=== PATIENT | female | born 1995 | race Caucasian/White ===

== ENCOUNTER 2021-10-08 17:54 | Emergency (ER) | payer SELFPAY ==
[2021-10-08 18:30] VITALS: BP 130/86; PULSE 72; RESP 18; TEMP 36.3; O2SAT 100
--- NOTE | 2021-10-08 18:38 | ED.ALLEREA ---
HPI - Allergic Reaction General Chief complaint: Allergic Reaction Stated complaint: hives Time Seen by Provider: 10/08/21 18:38 Source: patient Mode of arrival: ambulatory Limitations: no limitations History of Present Illness HPI narrative: 26-year-old migraine presents 1-2 cm circular erythematous wheals with skin excoriation intense pruritus. No new medications. No new foods consumed recently. No hoarseness, shortness of breath, tongue swelling, abdominal pain or lightheadedness MD complaint: allergic reaction Onset (ago): day(s) ( 1 day) Exposure: unknown Symptoms: rash and itching Severity: moderate Treatment prior to arrival: none Previous Allergic Reaction History: none Related Data Home Medications Medication Instructions Recorded Confirmed ibuprofen 800 mg PO Q6H PRN 10/08/21 10/08/21 Allergies Allergy/AdvReac Type Severity Reaction Status Date / Time No Known Allergies Allergy Verified 10/08/21 18:32 Review of Systems Review of Systems: All systems reviewed & are unremarkable except as noted in HPI and below Constitutional: Constitutional: Reports as per HPI and Reports no additional constitutional complaints Eyes: Eyes: Reports as per HPI and Reports no additional eye complaints ENT: Reports system reviewed and no additional complaints, except as documented Cardiovascular: Cardiovascular: Reports as per HPI and Reports no additional cardiovascular complaints Respiratory: Respiratory: Reports as per HPI and Reports no additional respiratory complaints Gastrointestinal: Gastrointestinal: Reports as per HPI and Reports no additional gastrointestinal complaints Genitourinary: Genitourinary: Reports no additional female genitourinary complaints Musculoskeletal: Musculoskeletal: Reports no additional musculoskeletal complaints Integumentary/Breasts: Skin/Breast: Reports system reviewed and no additional complaints, except as docu and Reports as per HPI Neurologic: Reports system reviewed and no additional complaints, except as documented Psychiatric: Psychiatric: Reports no additional psychiatric complaints Endocrine: Endocrine: Reports no additional endocrine complaints Hematologic/Lymphatic: Hematologic/Lymphatic: Reports no additional hematologic/lymphatic complaints Allergic/Immunologic: Allergic/Immunologic: Reports no additional allergic/immunologic complaints Exam Narrative: multiple 1-2 cm raised erythematous wheals with intense itching and skin excoriation Const: General: cooperative, healthy appearing and comfortable HENMT: Head: normal to inspection Ears: hearing grossly normal bilaterally General nose exam: Normal external nose present Face and sinus: normal facial exam Mouth: Yes Normal oral and palatal mucosa present Teeth and gingiva: dentition normal Throat: posterior oropharynx normal Eyes: General: appearance normal, both eyes and all related structures Eyelids: eyelids normal Conjunctivae: conjunctivae normal Sclera: sclerae normal Cornea: corneas normal Pupils: Equal, round and reactive pupils present Neck: Neck: normal visual inspection Thyroid: thyroid normal Chest: Chest palpation & inspection: normal inspection of the chest Resp: Effort & Inspection: normal respiratory effort Auscultation: clear to auscultation bilaterally Cardio: Jugular venous distension: no JVD Rate: regular rate Rhythm: regular rhythm Heart sounds: S1 normal heart sound present and S2 normal heart sound present GI: Inspection: normal to inspection ( no Abdominal tenderness/rigidity/rebound.) : General: Yes no CVA tenderness Back/Spine/Pelvis: Back: no CVA tenderness Skin: General skin exam: normal color ( lesions are present in arms and forearms and none elsewhere) and other ( 1-2 cm erythematous wheals with excoriation. pruritus) Neuro: General: oriented to person, oriented to place and oriented to time Cranial nerves: Yes CN's II-XII intact bilaterally Cognitio
[2021-10-08] MEDS: methylPREDNISolone SOD SUCC 125 MG VIAL IM (19:09)
[2021-10-08] MEDS: diphenhydrAMINE HCl CAP 25 MG CAPSULE PO (19:09)
== END 2021-10-08 19:18 | disposition home or self-care (01) ==
PROVIDERS: Emergency Provider Internal Medicine Critical Care Medicine
DX: L50.9 Urticaria, unspecified (principal); L28.0 Lichen simplex chronicus
CPT/HCPCS: 96372; 99283; A9270; J2930

== ENCOUNTER 2023-03-21 22:41 | Emergency (ER) | payer SELFPAY ==
--- NOTE | ~2023-03-21 | XR_ITS ---
EXAMINATION: XR chest 1V portable INDICATION: Cough TECHNIQUE: Portable AP chest at 2320 hours COMPARISON: 10/10/2018 FINDINGS: There are patchy opacities throughout all lung zones. No pleural effusion or pneumothorax. The the cardiomediastinal silhouette is normal. IMPRESSION: 1. Diffuse lung disease, likely pneumonia. Reviewed, dictated and finalized at location A.
[2023-03-21 22:45] VITALS: BP 126/80; PULSE 112; RESP 20; TEMP 36.8; O2SAT 98
--- NOTE | 2023-03-21 22:50 | PC.NURSE ---
report to pedro martin. all questions answered.
--- NOTE | 2023-03-21 22:54 | ED.URI ---
HPI - URI/Sore Throat General Chief Complaint: Upper Respiratory Infection Stated Complaint: Cough Source: patient Mode of arrival: ambulatory Limitations: no limitations History of Present Illness HPI Narrative: 27-year-old with a history Seasonal asthma,COVID March 13 presents to the ER with a 5 day history of -- cough productive of green sputum -- no chest pain. No shortness of breath. no fever MD elicited complaint: cough Onset (ago): day(s) ( symptoms started after patient had COVID but has been severe for the past 5 days) Consistency: constant Severity: moderate Description of mucous: green Able to tolerate fluids by mouth: Yes Exacerbating factors: nothing Relieving factors: nothing Associated symptoms: denies other symptoms and cough Treatments prior to arrival: none Related Data Allergies Allergy/AdvReac Type Severity Reaction Status Date / Time docosanol [From Abreva] AdvReac Unknown lip Verified 02/09/23 13:30 swelling Review of Systems Review of Systems: All systems reviewed & are unremarkable except as noted in HPI and below Constitutional: Constitutional: Reports as per HPI and Reports no additional constitutional complaints Eyes: Eyes: Reports as per HPI ENT: Reports system reviewed and no additional complaints, except as documented and Reports as per HPI Cardiovascular: Cardiovascular: Reports as per HPI and Reports no additional cardiovascular complaints Respiratory: Respiratory: Reports as per HPI, Reports no additional respiratory complaints and Reports cough Gastrointestinal: Gastrointestinal: Reports as per HPI and Reports no additional gastrointestinal complaints Musculoskeletal: Musculoskeletal: Reports no additional musculoskeletal complaints Integumentary/Breasts: Skin/Breast: Reports system reviewed and no additional complaints, except as docu and Reports as per HPI Neurologic: Reports system reviewed and no additional complaints, except as documented and Reports as per HPI Psychiatric: Psychiatric: Reports no additional psychiatric complaints and Reports as per HPI Endocrine: Endocrine: Reports no additional endocrine complaints and Reports as per HPI Hematologic/Lymphatic: Hematologic/Lymphatic: Reports no additional hematologic/lymphatic complaints and Reports as per HPI Allergic/Immunologic: Allergic/Immunologic: Reports no additional allergic/immunologic complaints and Reports as per HPI PMF Past Medical History Medical History (Updated 03/22/23 @ 00:27 by Jason Perera MD) COVID Social History Social History (Updated 02/09/23 @ 13:30 by Esther Agudelo) Smoking status: Never smoker Exam Const: General: cooperative, healthy appearing and comfortable HENMT: Head: normal to inspection, No palpable skull fracture present and normocephalic Ears: hearing grossly normal bilaterally, external ears normal and TM's normal bilaterally Face/Nose/Sinus: Normal external nose present and Normal nares present Face and sinus: normal facial exam and sinuses nontender Mouth: Yes Normal oral and palatal mucosa present, Yes lip normal and Yes tongue normal Throat: posterior oropharynx normal Eyes: General: appearance normal, both eyes and all related structures Neck: Neck: normal visual inspection, full ROM and no lymphadenopathy Lymphatic: no lymphadenopathy noted Chest: Chest palpation & inspection: normal inspection of the chest Resp: Effort & Inspection: normal respiratory effort and prolonged expiratory phase Other: Occasional rales. Cardio: Palpation: normal PMI Rate: regular rate Rhythm: regular rhythm Heart sounds: S1 normal heart sound present and S2 normal heart sound present GI: Inspection: normal to inspection GI Palp: Yes Other GI palpation findings present ( no tenderness/rigidity / rebound.) Auscultation: normal bowel sounds : General: Yes no CVA tenderness Back/Spine/Pelvis: Back: no CVA tenderness Skin: General skin exam
[2023-03-21 23:23] VITALS: O2SAT 97
--- NOTE | 2023-03-21 23:24 | PC.NURSE ---
Respiratory pathogen swab obtained and sent to lab. Lab at bedside for blood specimens. Pt voices no other needs at this time conversing with lab in full sentences without cough noted at this time.
[2023-03-21 23:29] LABS: Basophils Absolute Auto 0.08 K/mm3 (0.00-0.10); Basophils Percent Auto 0.8 % (0.0-1.0); Eosinophils Absolute Auto 0.28 K/mm3 (0.02-0.50); Eosinophils Percent Auto 2.8 % (1.0-6.0); Hematocrit 38.5 % (35.0-49.0); Hemoglobin 12.9 g/dL (12.0-15.0); Immature Granulocyte Absolute 0.03 K/mm3 (0.00-0.00); Immature Granulocyte Percent A 0.3 % (0.0-0.0); Mean Corpuscular HGB Conc 33.5 g/dL (32.0-36.0); Mean Corpuscular Hemoglobin 28.2 pg (27.0-31.0); Mean Corpuscular Volume 84.1 fL (78.0-102.0); Mean Platelet Volume 9.6 fl (9.2-11.8); Monocytes Absolute Auto 0.98 K/mm3 (0.10-0.90); Monocytes Percent Auto 9.8 % (2.0-11.0); Neutrophils Absolute Auto 5.7 K/mm3 (1.7-7.2); Neutrophils Percent Auto 57.3 % (50.0-70.0); Platelet Count Result 378 K/mm3 (150-420); Red Blood Count 4.58 M/mm3 (4.20-5.40); Red Cell Distribution Width 13.1 % (11.6-14.4)
[2023-03-21 23:43] LABS: Alanine Aminotransferase 30 U/L (14-59); Albumin Level 3.7 g/dL (3.4-5.0); Alkaline Phosphatase 63 U/L (46-116); Anion Gap 9 mmol/L (8-16); Aspartate Amino Transferase 14 U/L (15-37); Bilirubin,Total 0.2 mg/dL (0.00-1.00); Blood Urea Nitrogen 17 mg/dL (7-18); Calcium 8.8 mg/dL (8.5-10.1); Carbon Dioxide 29 mmol/L (21-32); Chloride 102 mmol/L (98-108); Estimated CRCL calculation 86 ml/min; Estimated Glomerular Filt Rate > 60; Glucose 100 mg/dL (70-99); Osmolality Calculated 291 mOsm/kg (285-295); Potassium 3.5 mmol/L (3.5-5.1); Sodium 140 mmol/L (136-145); Total Protein 7.5 g/dL (6.4-8.2)
[2023-03-21 23:45] VITALS: BP 115/78; PULSE 89; RESP 20; O2SAT 98
[2023-03-21 23:49] LABS: Lactic Acid Reflex 0.8 mmol/L (0.4-2.0)
[2023-03-22 00:05] LABS: Influenza A QL RT-PCR Negative (Negative); Influenza B QL RT-PCR Negative (Negative); SARS-CoV-2 RNA PCR Negative (Negative)
[2023-03-22 00:07] LABS: RSV RNA, RT-PCR Negative (Negative)
[2023-03-22] MEDS: methylPREDNISolone SOD SUCC 125 MG VIAL IM (00:18)
== END 2023-03-22 00:40 | disposition home or self-care (01) ==
PROVIDERS: Emergency Provider Internal Medicine Critical Care Medicine; PCP Family Medicine
DX: U07.1 COVID-19 (principal); J12.82 Pneumonia due to coronavirus disease 2019
CPT/HCPCS: 36415; 71045; 80053; 83605; 85025; 87637; 96372; 99283; J2930

== ENCOUNTER 2023-04-12 01:35 | Emergency (ER) | payer OTHER, SELFPAY ==
[2023-04-12 01:44] VITALS: BP 131/85; PULSE 96; RESP 18; TEMP 37; O2SAT 97
--- NOTE | 2023-04-12 02:00 | ED.GENADULT ---
HPI - General Adult General Chief complaint: Nausea/Vomiting/Diarrhea Stated complaint: Abdominal Pain History of Present Illness HPI narrative: Heaven is a 28F with a PMH of TBI and mild intermittent asthma that presented to the ED with abdominal pain and diarrhea. She started having diffuse abdominal cramps that led to watery diarrhea a few days ago that preceded her menses. It has become progressively worse. She had diffuse abdominal pain that radiates to her back, countless episodes of watery diarrhea, and 2 episodes of non-bloody vomiting. She cannot keep any solid food down. Of note she recently completed a course of steroids and azithromycin. Related Data Allergies Allergy/AdvReac Type Severity Reaction Status Date / Time docosanol [From Abreva] AdvReac Unknown lip Verified 04/12/23 01:50 swelling Review of Systems Review of Systems: All systems reviewed & are unremarkable except as noted in HPI and below PMFSH Past Medical History Medical History (Updated 04/12/23 @ 03:17 by James Freed DO) COVID Social History Social History (Updated 02/09/23 @ 13:30 by Esther Agudelo) Smoking status: Never smoker Exam Const: General: healthy appearing and no acute distress Nutritional Appearance: well nourished Orientation/consciousness: patient oriented x3 HENMT: Head: normal to inspection Eyes: Conjunctivae: conjunctivae normal Pupils: Equal, round and reactive pupils present Neck: Neck: normal visual inspection Chest: Chest palpation & inspection: normal inspection of the chest Resp: Effort & Inspection: normal respiratory effort, not labored and no retractions Auscultation: clear to auscultation bilaterally Cardio: Rate: regular rate Rhythm: regular rhythm GI: Inspection: non-distended GI Palp: Yes Soft to palpation, Yes Tenderness to palpation present (GI) (diffuse mild TTP ) and No Guarding due to palpation present (GI) Auscultation: normal bowel sounds Back/Spine/Pelvis: Back: no CVA tenderness Skin: General skin exam: normal color Neuro: General: patient oriented x3 and moves all extremities Cranial nerves: Yes Nystagmus not present Extrem: General: normal to inspection Psych: Mental Status: mental status grossly normal Course Course Emergency Course: Ordered labs as below, zofran, dicyclomine and fluids Labs showed mildly elevated CRP and leukocytosis but were otherwise normal C. diff testing is also negative. After the dicyclomine she had some relief but still had a gurgling stomach Given watery diarrhea, nausea and vomiting gastroenteritis is most likely. Given normal lipase and LFTs, normal vitals and no dysuria, pancreatitis, cholecystitis, pyelonephritis, and ischemic colitis are less likely Vital Signs Vital signs: Vital Signs Temperature 98.6 F 04/12/23 01:44 Pulse Rate 96 04/12/23 01:44 Respiratory Rate 18 04/12/23 01:44 Blood Pressure 131/85 04/12/23 01:44 Pulse Oximetry 97 04/12/23 01:44 Oxygen Delivery Room Air 04/12/23 01:44 Temperature 97.5 F L 04/12/23 04:27 Pulse Rate 81 04/12/23 04:27 Respiratory Rate 17 04/12/23 04:27 Blood Pressure 108/59 L 04/12/23 04:27 Pulse Oximetry 96 04/12/23 04:27 Oxygen Delivery Room Air 04/12/23 04:27 Medical Decision Making Vital Signs Vital Signs: Vital Signs Temperature 98.6 F 04/12/23 01:44 Pulse Rate 96 04/12/23 01:44 Respiratory Rate 18 04/12/23 01:44 Blood Pressure 131/85 04/12/23 01:44 Pulse Oximetry 97 04/12/23 01:44 Oxygen Delivery Room Air 04/12/23 01:44 Temperature 97.5 F L 04/12/23 04:27 Pulse Rate 81 04/12/23 04:27 Respiratory Rate 17 04/12/23 04:27 Blood Pressure 108/59 L 04/12/23 04:27 Pulse Oximetry 96 04/12/23 04:27 Oxygen Delivery Room Air 04/12/23 04:27 Lab Data 04/12/23 02:13 04/12/23 02:13 Labs: Lab Results 04/12/23 Range/Units 02:13 WBC 12.2 H (
--- NOTE | 2023-04-12 02:20 | PC.NURSE ---
stool sample sent to lab
[2023-04-12 02:25] LABS: Basophils Absolute Auto 0.04 K/mm3 (0.00-0.10); Basophils Percent Auto 0.3 % (0.0-1.0); Eosinophils Absolute Auto 0.13 K/mm3 (0.02-0.50); Eosinophils Percent Auto 1.1 % (1.0-6.0); Hemoglobin 12.7 g/dL (12.0-15.0); Immature Granulocyte Absolute 0.03 K/mm3 (0.00-0.00); Immature Granulocyte Percent A 0.2 % (0.0-0.0); Lymphocytes Absolute Auto 2.08 K/mm3 (1.10-4.50); Lymphocytes Percent Auto 17.1 % (18.0-42.0); Mean Corpuscular HGB Conc 33.4 g/dL (32.0-36.0); Mean Corpuscular Hemoglobin 28.1 pg (27.0-31.0); Mean Corpuscular Volume 84.1 fL (78.0-102.0); Mean Platelet Volume 9.5 fl (9.2-11.8); Monocytes Absolute Auto 1.09 K/mm3 (0.10-0.90); Neutrophils Absolute Auto 8.8 K/mm3 (1.7-7.2); Neutrophils Percent Auto 72.3 % (50.0-70.0); Platelet Count Result 386 K/mm3 (150-420); Red Blood Count 4.52 M/mm3 (4.20-5.40); Red Cell Distribution Width 13.2 % (11.6-14.4); White Blood Count 12.2 K/mm3 (4.8-10.8)
[2023-04-12] MEDS: ONDANSETRON INJ 4 MG/2 ML VIAL IV PUSH (02:31)
[2023-04-12] MEDS: SODIUM CHLORIDE 0.9% IV 1,000 ML 999 ML IV CONT (02:31)
[2023-04-12 02:36] LABS: Alanine Aminotransferase 54 U/L (14-59); Albumin Level 3.6 g/dL (3.4-5.0); Alkaline Phosphatase 52 U/L (46-116); Anion Gap 11 mmol/L (8-16); Aspartate Amino Transferase 26 U/L (15-37); Bilirubin,Total 0.3 mg/dL (0.00-1.00); Blood Urea Nitrogen 17 mg/dL (7-18); CRP 1.8 mg/dL (0.0-0.9); Calcium 8.6 mg/dL (8.5-10.1); Carbon Dioxide 25 mmol/L (21-32); Chloride 105 mmol/L (98-108); Estimated CRCL calculation 91 ml/min; Estimated Glomerular Filt Rate > 60; Glucose 94 mg/dL (70-99); Lipase 22 U/L (16-77); Osmolality Calculated 293 mOsm/kg (285-295); Potassium 3.6 mmol/L (3.5-5.1); Sodium 141 mmol/L (136-145); Total Protein 7.1 g/dL (6.4-8.2)
[2023-04-12] MEDS: DICYCLOMINE HCL INJ 20 MG/2 ML VIAL IM (02:42)
[2023-04-12 02:44] LABS: Lactic Acid Reflex 0.6 mmol/L (0.4-2.0)
[2023-04-12 03:55] LABS: Appearance Urine Clear (Clear); Bilirubin Urine Negative (Negative); Blood Urine 2+ (Negative); Color Urine Light Yellow (Yellow); Glucose Urine UA Negative (Negative); Ketones Urine 1+ (Negative); Leukocyte Esterase Ur Negative LEU/UL (Negative); Nitrate Urine Negative (Negative); Protein Urine Negative (Negative); Specific Grav Ur >= 1.030 (1.010-1.020); Urobilinogen Urine 0.2 mg/dL (0.2-1.0)
[2023-04-12 04:01] LABS: Add Urine Microscopic? YES; Bacteria Urine 1+ /hpf; Mucus Urine Moderate /lpf; RBC Urine 0-2 /hpf (0-2); Squamous Epithelial Cell Urine Moderate /hpf (Few)
[2023-04-12 04:27] VITALS: BP 108/59; PULSE 81; RESP 17; TEMP 36.4; O2SAT 96
--- NOTE | 2023-04-12 12:40 | PC.NURSE ---
Final stool report: Negative for C. Difficile antigen and toxin, no further treatment needed.
== END 2023-04-12 04:31 | disposition home or self-care (01) ==
LOC: CHSED 04:31
PROVIDERS: Emergency Provider Family Medicine
DX: K52.9 Noninfective gastroenteritis and colitis, unspecified (principal)
CPT/HCPCS: 36415; 80053; 81001; 83605; 83690; 85025; 86140; 87324; 96361; 96372; 96374; 99284; J0500; J2405; J7030